=== PATIENT | female | born 1970 | race Caucasian/White ===

== ENCOUNTER → 2021-09-02 07:06 | Outpatient (CLI) | payer OTHER, SELFPAY ==
--- NOTE | ~2021-09-02 | XR_ITS ---
EXAMINATION: XR chest 2V DATE: 09/02/2021 07:25 INDICATION: Shortness of breath and chest tightness. TECHNIQUE: Frontal and lateral views of the chest were obtained. COMPARISON: None. FINDINGS: The chest demonstrates clear lungs without pneumonia, pleural effusion, or pneumothorax. Th e heart size is normal. Surgical clips in the right upper quadrant are likely from cholecystectomy. IMPRESSION: 1. No acute cardiopulmonary disease. Reviewed, dictated and finalized at location A.
== END ==
PROVIDERS: PCP Family Medicine; Visit Provider Family Medicine
DX: R06.02 Shortness of breath (principal); R07.89 Other chest pain
CPT/HCPCS: 71046